=== PATIENT | female | born 1990 | race Caucasian/White ===

== ENCOUNTER → 2018-12-09 12:48 | Observation (INO) ==
[2018-12-09 10:45] LABS: Bilirubin,Urine Negative (Negative); Blood,Urine Small (Negative); Clarity,Urine Clear (Clear); Color,Urine Yellow (Yellow); Glucose,Urine (UA) Normal (Normal); Ketones,Urine Negative (Negative); Leukocyte Esterase,Urine Small (Negative); Nitrite,Urine Negative (Negative); Protein,Urine Negative (Neg-Trace); Specific Gravity,Urine 1.015 (1.010-1.025); Urobilinogen,Urine Normal (Normal)
[2018-12-09 10:56] LABS: Amphetamine Screen,Urine Negative ng/mL (Cutoff=1000); Barbiturate Screen,Urine Negative ng/mL (Cutoff=200); Benzodiazepines Screen,Urine Negative ng/mL (Cutoff=200); Cannabinoid Screen,Urine Positive ng/mL (Cutoff = 50); Cocaine Screen,Urine Negative ng/mL (Cutoff= 300); Opiate Screen,Urine Negative ng/mL (Cutoff=300); Phencyclidine Screen,Urine Negative ng/mL (Cutoff=25)
[2018-12-09 11:05] LABS: RBC,Urine 0-3 per hpf (0-3); Squamous Epithelial Cell,Urine Many per lpf (None-Few)
[2018-12-09 11:06] LABS: Bacteria,Urine Few per hpf (None-Few)
[2018-12-09 12:00] LABS: Trichomonas DNA Not Detected (Not Detect)
[2018-12-09 12:01] LABS: Candida DNA Not Detected (Not Detect); Gardnerella DNA DETECTED (Not Detect)
--- NOTE | 2018-12-09 12:39 | OB/GYN Progress Note ---
Date of Encounter: 12/09/18 Time of Encounter: 12:33 - Assessment and Plan (1) 30 weeks gestation of Current Visit: Yes Status: Acute (2) Encounter for suspected PROM, with rupture of membranes not found Current Visit: Yes Status: Acute Speculum exam shows copious thick white discharge, microscopy shows two small areas suggestive of ferning noted on slide, but not indicative of rupture, not seen on follow up speculum exam by Dr. Garcia, suspect cervical mucous ferns. US by Dr. Garcia shows adequate SINGH. UA indicates infection, will discharge home on Macrobid and Flagyl, and perterm labor and when to return to triage instructions. Pt verbalizes understanding and in agreement with plan. Dr. Garcia involved in POC and discharge planning. (3) Bacterial vaginosis Current Visit: Yes Status: Acute will be given flagyl rx (4) UTI (urinary tract infection) Current Visit: Yes Status: Acute discharged on Macrobid Qualifiers: Urinary tract infection type: acute cystitis Hematuria presence: without hematuria Qualified Code(s): N30.00 - Acute cystitis without hematuria Subjective - Subjective Interval history: presents to triage with complaints of lower back pain and urinary frequency and urgency,vaginal pressure and round ligament pain, denies dysuria. Does not f eel like she is having contractions. Reports good movement, denies vaginal bleeding. Pt states on Sunday and had some leaking noted, none yesterday or today, last intercourse on Sunday. Pt has not checked blood glucose today due to lack of testing strips at home. Antepartum ROS: loss of fluid, movement normal, no vaginal bleeding, no contractions Objective - Exam FHR: auscultation normal FHR comments: baseline 140 Abdomen: Present: soft, gravid Cervical dilation: fingertip/thick/high - Labs Labs: Abnormal lab results Small (Negative) H 12/09/18 10:05 Ur Leukocyte Esterase Small (Negative) H 12/09/18 10:05 5-15 per hpf (0-3) H 12/09/18 10:05 Ur Squamous Epith Cells Many per lpf (None-Few) H 12/09/18 10:05 Ur Culture Indicated? YES (NO) A 12/09/18 10:05 U Marijuana (THC) Screen Positive ng/mL (Cutoff = 50) H 06/10/19 10:05 DETECTED (Not Detect) A 12/09/18 10:18
--- NOTE | 2018-12-09 13:25 | OB/GYN Progress Note ---
Date of Encounter: 12/09/18 Time of Encounter: 13:22 - Assessment and Plan (1) and not yet delivered in third trimester Current Visit: Yes Status: Acute (2) Gestational diabetes Current Visit: Yes Status: Acute She will sampler pickup test strips today and continued monitoring sugars as previously recommended Qualifiers: Gestational diabetes mellitus control: oral hypoglycemic-controlled Trimester: third trimester Qualified Code(s): O24.415 - Gestational diabetes mellitus in , controlled by oral hypoglycemic drugs (3) 30 weeks gestation of Current Visit: Yes Status: Acute (4) Bacterial vaginosis Current Visit: Yes Status: Acute She will be treated with Flagyl 500 mg twice a day for 7 days (5) UTI (urinary tract infection) Current Visit: Yes Status: Acute She will be treated with Macrobid 100 mg twice a day for 7 days Qualifiers: Urinary tract infection type: acute cystitis Hematuria presence: without hematuria Qualified Code(s): N30.00 - Acute cystitis without hematuria Subjective - Subjective Interval history: She is 28-year-old female at 30-4/7 weeks who presents to labor and delivery with complaint of lower back pain cramping and possible leaking of fluid. Patient was initially worked up by the midwives and on speculum exam they found a white discharge but when they did a ferning test with 2 areas that look like burning to them. Did it as needed, and assess the slide I did review with there were these 2 areas that did look like ferning. The patient had complained of a little bit of leaking over the weekend but nothing since. A vaginosis panel was pending at that initial assessment so we had the patient put a pad on and waited for the vaginosis to return. Once we get the results back positive for Bacterial vaginosis I did recommend doing another speculum exam on the patient and a bedside ultrasound for SINGH. Patient is also complaining of back pain when reassessed her she had some pain but appeared to be in the right side more lower back then CVA tenderness suggestive of kidney however when the fisher trammel net assess to her pain was higher. She is complaining of significant amount of frequency and urgency but no dysuria. She is a diabetic gestational A2 on metformin we just had to increase her dose. She states that she ran out of test strips and has not been testing her sugars for the last couple days. She is to going to the strips today and get their sugars monitored cervical make sure that everything staying stable. Antepartum ROS: loss of fluid, contractions Objective - Exam FHR: category 1 FHR comments: Heart tones 140s reactive no contraction seen Auscultation: bilateral: normal Abdomen: Present: soft (Obese), gravid (Bedside ultrasound did reveal vertex presentation SINGH 16.2 cm maximum vertical pocket 8 cm), tenderness (Right flank below within the kidneys) Uterus: Present: firm (Nontender to palpation) Cervical dilation: closed Cervix effacement: thick station: NE Comments: Sterile speculum exam performed on the patient did reveal a whitish discharge we did do another phone on the patient this time I could not identify anything suggestive she was ruptured. - Labs Labs: Abnormal lab results Small (Negative) H 12/09/18 10:05 Ur Leukocyte Esterase Small (Negative) H 12/09/18 10:05 5-15 per hpf (0-3) H 12/09/18 10:05 Ur Squamous Epith Cells Many per lpf (None-Few) H 12/09/18 10:05 Ur Culture Indicated? YES (NO) A 12/09/18 10:05 U Marijuana (THC) Screen Positive ng/mL (Cutoff = 50) H 12/09/18 10:05 DETECTED (Not Detect) A 12/09/18 10:18
== END | disposition home or self-care (01) ==
LOC: 1NENULAB
PROVIDERS: ADMIT Obstetrics & Gynecology; ATTEND Obstetrics & Gynecology

== ENCOUNTER 2019-02-03 08:00 | Inpatient (IN) ==
--- NOTE | 2019-02-03 08:32 | OB/GYN History & Physical ---
Date of Encounter: 02/03/19 Time of Encounter: 08:30 Assessment and Plan (1) 39 weeks gestation of Current visit: Yes Status: Acute (2) Diabetes mellitus affecting in third trimester Current visit: Yes Status: Acute (3) Elective induction of labor planned Current visit: Yes Status: Acute She will be induced with a Arceo catheter and Cytotec plan is to anticipate vaginal delivery (4) and not yet delivered in third trimester Current visit: No Status: Acute History of Present Illness HPI: Ms. Kearney is a 28 year old female 5 para 3013 at 39-0/7 weeks who presented for induction of labor secondary to term . Patient is a type II diabetic be managed by maternal medicine. She is on metformin to control her sugars. She has been getting twice weekly NSTs which have been reassuring. Did inform her once we to 39 weeks she need to be induced. She denies any leaking of fluid no vaginal bleeding no discharge. Patient is wanting a tubal ligation did inform her we might have to wait until 6 weeks if we cannot fitted and prior to discharge. Tubal papers had been signed. Patient is O+, GBS negative, rubella negative, Varicella positive. Past Med Surg Social Fam HX - Past Medical History Source: patient, old records reviewed Medical history: diabetes (type 2) Psychiatric history: no psych history - Past Surgical History Additional surgical history: T&A at age 4 - Social History Smoking Status: Current every day smoker Smokeless Tobacco Status: No Alcohol use: rarely Drug use: marijuana Occupational status: unemployed Current living situation: Home - Independent Activity Level: Independent ambulation Recent Out of Country Travel Within the Last 8 Weeks: No Exposure or Possible Exposure to Illness During Travel: No - Family History Mother Living Status: Still Living - Additional Family History Additional family history: Family history noncontributory Obstetrical History - Pregnancies : 5 Para: 3 Term: 3 : 0 Ab's: 1 Livin Medications and Allergies Levonorgestrel [Mirena] 52 mg IY PER PKG DI 03/19/16 [History] Penicillin VK 500 mg PO QID #40 tablet 03/19/16 [Rx] traMADol [Ultram] 50 mg PO Q6HR PRN #20 tablet 03/19/16 [Rx] Nitrofurantoin Monohyd/M-Cryst [Macrobid 100 mg Capsule] 100 mg PO BID #14 capsule 12/09/18 [Rx] metroNIDAZOLE [Flagyl] 500 mg PO BID #14 tablet 12/09/18 [Rx] Allergy/AdvReac Type Severity Reaction Status Date / Time No Known Allergies Allergy Verified 07/06/17 18:18 Review of System OB All systems PM: reviewed and no additional remarkable complaints except as stated Exam - Constitutional Constitutional: well developed, well nourished, no acute distress, morbidly obese - HEENT HEENT: EOMI, PERRL, Mucus Membranes Moist - Neck Neck exam: full ROM - Lungs Respiratory exam: CTAB - Cardiovascular Cardiovascular exam: RRR - Abdomen Abdomen: Present: bowel sounds normal, gravid ( heart tones 140s reactive occasional contractions seen) - Cervix Dilation: 2 Effacement: 80 Station: -3 (Arceo catheter placed 40 mL balloon inflated and 25 g Cytotec placed vaginally) Results All other labs normal.
[2019-02-03] MEDS ORDERED: *HR* Nalbuphine 10 MG/ML AMPUL IVP PRN (08:36)
[2019-02-03] MEDS ORDERED: Famotidine 20 MG/2 ML VIAL IVP PRN (08:36)
[2019-02-03] MEDS ORDERED: Naloxone 0.4 MG/ML INJ IVP PRN (08:36)
[2019-02-03] MEDS ORDERED: Ondansetron 4 MG/2 ML VIAL IVP PRN (08:36)
[2019-02-03] MEDS ORDERED: Metoclopramide 10 MG/2 ML VIAL IVP PRN (08:36)
[2019-02-03] MEDS ORDERED: Lidocaine 1% 20 ML MDV INFILT PRN (08:36)
[2019-02-03] MEDS ORDERED: miSOPROStol 25 MCG TABLET VG PRN (08:38)
[2019-02-03] MEDS ORDERED: Ringers Solution, Lactated 1,000 ML IVC SCH (08:45)
[2019-02-03 09:10] LABS: Basophils % 0.2 %; Eosinophils # 0.1 K/mcL (0.0-0.6); Eosinophils % 0.9 %; Immature Granulocytes % 0.4 % (0-4); Lymphocytes # 2.9 K/mcL (0.6-4.6); Lymphocytes % 21.6 %; Mean Corpuscular HGB Conc 34.2 g/dL (31.6-35.5); Mean Corpuscular Hemoglobin 27.8 pg (28.0-33.3); Mean Corpuscular Volume 81.4 fL (83.0-100.0); Mean Platelet Volume 10.6 fL (9.4-12.4); Monocytes # 0.7 K/mcL (0.0-1.3); Monocytes % 5.2 %; Neutrophils # 9.6 K/mcL (1.6-8.9); Platelet Count 270 K/mcL (140-400); Red Blood Count 4.67 M/mcL (3.82-4.97); Red Cell Distribution Width 14.4 % (11.5-14.5); Segmented Neutrophils % 71.7 %; White Blood Count 13.4 K/mcL (4.3-11.1)
[2019-02-03 11:15] LABS: Amphetamine Screen,Urine Negative ng/mL (Cutoff=1000); Barbiturate Screen,Urine Negative ng/mL (Cutoff=200); Benzodiazepines Screen,Urine Negative ng/mL (Cutoff=200); Cannabinoid Screen,Urine Negative ng/mL (Cutoff = 50); Cocaine Screen,Urine Negative ng/mL (Cutoff= 300); Opiate Screen,Urine Negative ng/mL (Cutoff=300); Phencyclidine Screen,Urine Negative ng/mL (Cutoff=25)
[2019-02-03 11:26] LABS: Protein/Creatinine Ratio,Urine 0.69 mg/mg (0.00-0.20)
--- NOTE | 2019-02-03 13:56 | OB Labor Progress Note ---
Date of Encounter: 02/03/19 Time of Encounter: 13:54 Labor Progress Note - Subjective Subjective: Patient is feeling contractions stating they are 6-7 out of 10 with contractions. catheter has been out now for some time. - Cervix Cervix: 5/90/-1 AROM large amount of clear fluid poly - Heart Tones Heart Tones: heart tones 140s reactive - Elias-Fela Solis Elias-Fela Solis: Contractions every 2-3 minutes. - Interventions Interventions: We will get patient epidural plan is to anticipate vaginal delivery
[2019-02-03] MEDS ORDERED: Bupivacaine-MPF 0.25% 10 ML VIAL ONE (14:15)
[2019-02-03] MEDS ORDERED: *HR* FentaNYL (PF) 100 MCG/2 ML VIAL ONE (14:15)
[2019-02-03] MEDS ORDERED: Epidural Premix (fent/bupiv) 110 ML EP ONE (14:16)
--- NOTE | 2019-02-03 15:28 | Anesthesia Evaluation PreOp ---
Date of Encounter: 02/03/19 Time of Encounter: 14:09 - Past History Planned Operation: labor epidural Cardiac History: Denies any Significant Hx Pulmonary History: Smoker (currently smokes 3-4 cigs per day, has smoked for 10- 12 yrs.) SENIOR INFORMATICA DEVELOPER History: Denies Any Significant HX Other Medical History: Diabetes Type II (On metformin, FS this am was 95.) Anesthesia History: No Prior Anesthetic Complications, Past Anesthesia (T&A as child, no problems with GA. Has had 3 previous epidurals without complications. No FHAP.) Alcohol Use: none Drug use: none Medications and Allergies Glyburide/Metformin HCl [Glyburid-Metformin 1.25-250 mg] 500 mg PO BID 02/03/19 [History] Vitamin Tablet 1 / PO DAILY 02/03/19 [History] Allergy/AdvReac Type Severity Reaction Status Date / Time No Known Allergies Allergy Verified 07/06/17 18:18 - Meds/Allergy Pre-op Review Medications Reviewed: Yes Allergies Reviewed: Yes Beta Blockers on Current Med List: No Anesthesia Results - Labs 02/03/19 08:40 02/03/19 08:40 Anesthesia Exam Vital Signs/O2 Sat, Most Current Temp Pulse Resp BP 97.1 F L 98 16 154/102 02/03/19 08:39 02/03/19 08:39 02/03/19 08:39 02/03/19 08:39 Height: 5'9" Weight: 244# NPO (# of Hours): >8 Pain Scale: 7 Pain Scale Used: Numeric (1 - 10) - HEENT Pupil (Motor): Pupils equal, EOMI Mallampati: II Teeth: Poor dentition Oral Opening: Greater than 3 - SENIOR INFORMATICA DEVELOPER LOC: Oriented SENIOR INFORMATICA DEVELOPER Motor: Normal RUE, Normal LUE, Normal RLE, Normal LLE, Normal Face SENIOR INFORMATICA DEVELOPER Sensory: Normal: RUE, LUE, RLE, LLE, Face - Cardiac Rhythm: Regular - Pulmonary Breath Sounds: bilateral Clear Respiratory Effort: Symmetrical Anesthesia Assess/Plan ASA Score: 3 (NIDDM, smoker.) Level of consciousness: Cooperative, Oriented, Tranquil Anesthetic Plan: Epidural Monitoring Plan: Standard Monitors
--- NOTE | 2019-02-03 15:33 | Anesthesia Procedures ---
Date of Encounter: 02/03/19 Time of Encounter: 14:24 Procedures: Anesthesia - Epidural/Spinal Patient ID/Chart reviewed: Yes Patient examined: Yes OB Eval: Gestational age: 39 OB Eval: : 5 OB Eval: Hx Para: 3 OB Eval: Dilated at (cm): 5 OB Eval: Contractions: Non-stressed pattern Consent Obtained: Yes Supplemental Oxygen: None/Room Air Site Prep: Aseptic Technique, 0.5% Chlorhexidine/Alcohol Patient position: upright Local Anesthetic: Lidocaine 1% (3) Touhy Needle Gauge: 18 Touhy Needle Depth (cm): 9 Catheter Depth at Skin (cm): 15 Test Dose (1.5% Lido + Epi): Volume given (mls): 3 Test Dose Result: Negative Loading Dose: 0.25% Marcaine (mls): 5 Loading Dose: Fentanyl (mcg): 100 Loading Dose Administered: Thru Catheter Infusion Med: 0.125% Bupivacaine w/ 2 mcg/ml Fentanyl Infusion Rate (mls/hr): [address]: Tegaderm, Tape Interspace Used: L3-L4 Loss of Resistance (LUKASZ): Yes Blood: No CSF: No Paresthesia: No Procedure: Performed Dural Puncture Technique, no meds administered in subarachnoid space. Vitals + FHT's: Vital Signs Time 1424 1442 1445 1450 BP 158/92 156/94 161/99 156/89 Pulse 88 103 71 82 FHTs 150 150 150 150
--- NOTE | 2019-02-03 17:08 | OB Labor Progress Note ---
Date of Encounter: 02/03/19 Time of Encounter: 17:06 Labor Progress Note - Subjective Subjective: Patient comfortable with epidural - Cervix Cervix: 780/-1 - Heart Tones Heart Tones: scalp monitor placed, heart tones 140s, reactive - Madill Madill: IUPC placed contractions every 2 minutes adequate - Interventions Interventions: Continue current care anticipate vaginal delivery
[2019-02-03] MEDS ORDERED: Oxytocin 20 units/ LR 1000 mL 20 UNIT/1,000 ML BAG IVC ONE (17:45)
--- NOTE | 2019-02-03 18:53 | OB/GYN Procedure Note ---
Delivery - Delivery Date: 02/03/19 Provider: Jose Garcia Intrapartum events: none Delivery induction: glass, misoprostol Delivery augmentation: rupture of membranes Delivery monitor: external FHT, external uterine, internal FHT, internal uterine Anesthesia: epidural Quantitated Blood Loss: 100 - (s) A Delivery Date: 02/03/19 Delivery Time: 18:29 Presentation: vertex Position: TANO Route of delivery: Gender: Male Viability: Viable Pounds: 8 Ounces: 15 Weight Gram: 4.06 kg at 1 minute: 8 at 5 mins: 9 Shoulder Dystocia: not encountered Specimens collected: cord blood Placenta: spontaneous Cord: 3 umbilical vessels - Repair Episiotomy: none Laceration Description: None - Complications Delivery complications: none Delivery comments: Patient is a 28-year-old 5 para 3 at 39-0/7 weeks who presented for induction of labor secondary with favorable cervix. Patient is a type II diabetic on metformin it was recommended that she be delivered at 39 weeks due to diabetic status she is brought to labor and delivery where Glass catheter was placed along with vaginal Cytotec. Catheter lab within 2 hours patient was 4-5 cm she was artificially ruptured large amount of clear fluid was encountered at this time she did receive an epidural patient progressed appropriately and became complete patient pushed approximately 5 times delivering a viable male in right occiput anterior presentation at 1829. There was no nuchal cord, no meconium, infant was bulb suctioned on the abdomen. Apgars were 8 at 1 minute, 9 at 5, weight was 8 lbs. 15 oz. Placenta was delivered spontaneously. Three-vessel cord, obstruction that tobias Garcia epidural, estimated blood loss 100 mL. Perineum cervix and vagina was visualized intact. She will be observed 2 hours before being taken floor. - Disposition Mom disposition: stable in LDR Beulah disposition: stable in LDR
[2019-02-03] MEDS ORDERED: Oxytocin 20 units/ LR 1000 mL 20 UNIT/1,000 ML BAG IVC SCH (21:08)
[2019-02-03] MEDS ORDERED: Acetaminophen 325 MG TABLET PO PRN (21:08)
[2019-02-03] MEDS ORDERED: Measles/Mumps/Rubella Vacc 0.5 ML VIAL SQ PRN (21:08)
[2019-02-03] MEDS ORDERED: Epidural Premix (fent/bupiv) 110 ML EP SCH (21:15)
[2019-02-03] MEDS: Ibuprofen 600 MG TABLET PO PRN (22:15)
[2019-02-03] MEDS: *HR* Metformin 500 MG TABLET PO SCH (22:15)
[2019-02-04 06:58] LABS: Basophils # 0.1 K/mcL (0.0-0.2); Basophils % 0.3 %; Eosinophils # 0.1 K/mcL (0.0-0.6); Eosinophils % 0.7 %; Hematocrit 36.9 % (35.3-44.9); Hemoglobin 12.5 g/dL (11.5-15.4); Immature Granulocytes % 0.5 % (0-4); Lymphocytes # 3.7 K/mcL (0.6-4.6); Lymphocytes % 22.3 %; Mean Corpuscular HGB Conc 33.9 g/dL (31.6-35.5); Mean Corpuscular Hemoglobin 27.7 pg (28.0-33.3); Mean Corpuscular Volume 81.8 fL (83.0-100.0); Mean Platelet Volume 11.1 fL (9.4-12.4); Monocytes # 0.9 K/mcL (0.0-1.3); Monocytes % 5.5 %; Neutrophils # 11.9 K/mcL (1.6-8.9); Platelet Count 249 K/mcL (140-400); Red Blood Count 4.51 M/mcL (3.82-4.97); Red Cell Distribution Width 14.3 % (11.5-14.5); Segmented Neutrophils % 70.7 %; White Blood Count 16.8 K/mcL (4.3-11.1)
[2019-02-04 08:30] VITALS: BP 130/94
[2019-02-04] MEDS: Ibuprofen 600 MG TABLET PO PRN ×2 (08:56→16:50)
[2019-02-04] MEDS: *HR* Metformin 500 MG TABLET PO SCH ×2 (08:56→16:50)
[2019-02-04] MEDS ORDERED: Prenatal Vit/FA 1 EACH TABLET PO SCH (09:00)
[2019-02-04 10:25] LABS: Alanine Aminotransferase 8 Units/L (7-52); Aspartate Amino Transferase 17 Units/L (13-39); BUN/Creatinine Ratio 13 (6-26); Blood Urea Nitrogen 7 mg/dL (6-20); Lactate Dehydrogenase 164 Units/L (140-271); Uric Acid 5.7 mg/dL (2.3-7.6); eGFR For African Americans > 60 (> 60); eGFR For Non-African Americans > 60 (> 60)
--- NOTE | 2019-02-04 15:57 | Discharge Summary ---
Date of Encounter: 02/04/19 Time of Encounter: 15:54 - Discharge Diagnosis (1) Vaginal delivery Priority: Primary Status: Acute Comments: Stable, meeting all PP milestones, pain well managed, bleeding minimal desires discharge - Discharge Medications Prescriptions: New Acetaminophen [Tylenol] 650 mg PO Q6H PRN tablet PRN Reason: Mild Pain Ibuprofen [Motrin] 600 mg PO Q6H PRN #60 tablet PRN Reason: Cramping Docusate [Colace] 100 mg PO BID #30 capsule metFORMIN [Glucophage] 500 mg PO BIDWM #60 tablet Continued Vitamin Tablet 1 / PO DAILY Discontinued Glyburide/Metformin HCl [Glyburid-Metformin 1.25-250 mg] 500 mg PO BID Home Medications: Vitamin Tablet 1 / PO DAILY 02/03/19 [History] Acetaminophen [Tylenol] 650 mg PO Q6H PRN tablet 02/04/19 [Rx] Docusate [Colace] 100 mg PO BID #30 capsule 02/04/19 [Rx] Ibuprofen [Motrin] 600 mg PO Q6H PRN #60 tablet 02/04/19 [Rx] metFORMIN [Glucophage] 500 mg PO BIDWM #60 tablet 02/04/19 [Rx] Allergies/Adverse Reactions: Allergy/AdvReac Type Severity Reaction Status Date / Time No Known Allergies Allergy Verified 07/06/17 18:18 Data Procedures and tests throughout hospitalization: Laboratory Tests 02/03/19 02/03/19 02/03/19 08:40 08:40 10:50 WBC 13.4 H RBC 4.67 Hgb 13.0 Hct 38.0 MCV 81.4 L MCH 27.8 L MCHC 34.2 RDW 14.4 Plt Count 270 MPV 10.6 Immature Gran % 0.4 Seg Neutrophils % 71.7 Lymphocytes % 21.6 Monocytes % 5.2 Eosinophils % 0.9 Basophils % 0.2 Neutrophils # 9.6 H Lymphocytes # 2.9 Monocytes # 0.7 Eosinophils # 0.1 Basophils # 0.0 BUN Creatinine Est GFR ( Amer) Est GFR (Non-Af Amer) BUN/Creatinine Ratio Glucose 150 H POC Glucose Uric Acid AST ALT Lactate Dehydrogenase Urine Creatinine 72 Protein/Creatinin Ratio 0.69 H Urine Total Protein 50 H Urine Opiates Screen Ur Buprenorphine Scrn Ur Barbiturates Screen Ur Phencyclidine Scrn Ur Amphetamines Screen U Benzodiazepines Scrn Urine Cocaine Screen U Marijuana (THC) Screen Ur Drug Screen Interp 02/03/19 02/03/19 02/03/19 10:50 14:53 23:26 WBC RBC Hgb Hct MCV MCH MCHC RDW Plt Count MPV Immature Gran % Seg Neutrophils % Lymphocytes % Monocytes % Eosinophils % Basophils % Neutrophils # Lymphocytes # Monocytes # Eosinophils # Basophils # BUN Creatinine Est GFR ( Amer) Est GFR (Non-Af Amer) BUN/Creatinine Ratio Glucose POC Glucose 85 165 H Uric Acid AST ALT Lactate Dehydrogenase Urine Creatinine Protein/Creatinin Ratio Urine Total Protein Urine Opiates Screen Negative Ur Buprenorphine Scrn Negative Ur Barbiturates Screen Negative Ur Phencyclidine Scrn Negative Ur Amphetamines Screen Negative U Benzodiazepines Scrn Negative Urine Cocaine Screen Negative U Marijuana (THC) Screen Negative Ur Drug Screen Interp See Below 02/04/19 02/04/19 02/04/19 06:25 09:50 10:06 WBC 16.8 H RBC 4.51 Hgb 12.5 Hct 36.9 MCV 81.8 L MCH 27.7 L MCHC 33.9 RDW 14.3 Plt Count 249 MPV 11.1 Immature Gran % 0.5 Seg Neutrophils % 70.7 Lymphocytes % 22.3 Monocytes % 5.5 Eosinophils % 0.7 Basophils % 0.3 Neutrophils # 11.9 H Lymphocytes # 3.7 Monocytes # 0.9 Eosinophils # 0.1 Basophils # 0.1 BUN 7 Creatinine 0.54 L Est GFR ( Amer) > 60 Est GFR (Non-Af Amer) > 60 BUN/Creatinine Ratio 13 Glucose POC Glucose 168 H Uric Acid 5.7 AST 17 ALT 8 Lactate Dehydrogenase 164 Urine Creatinine Protein/Creatinin Ratio Urine Total Protein Urine Opiates Screen Ur Buprenorphine Scrn Ur Barbiturates Screen Ur Phencyclidine Scrn Ur Amphetamines Screen U Benzodiazepines Scrn Urine Cocaine Screen U Marijuana (THC) Screen Ur Drug Screen Interp 02/04/19 14:15 WBC RBC Hgb Hct MCV MCH MCHC RDW Plt Count MPV Immature Gran % Seg Neutrophils % Lymphocytes % Monocytes % Eosinophils % Basophils % Neutrophils # Lymphocytes # Monocytes # Eosinophils # Basophils # BUN Creatinine Est GFR ( Amer) Est GFR (Non-Af Amer) BUN/Creatinine Ratio Glucose POC Glucose 144 H Uric Acid AST ALT Lactate Dehydrogenase Urine Creatinine Protein/Creatinin Ratio Urine Total Protein Urine Opiates Screen Ur Buprenorphine Scrn Ur Barbiturates Screen Ur Phencyclidine Scrn Ur Amphetamines Screen U Benzodiazepines Scrn Urine Cocaine Screen U Marijuana (THC) Screen Ur Drug Screen Interp Labs on day of discharge: Labs from last 24 hours 02/04/19 02/04/19 02/04/19 14:15 10:06 09:50 WBC RBC Hgb Hct MCV MCH MCHC RDW Plt Count MPV Immature Gran % Seg Neutrophils % Lymphocytes % Monocytes % Eosinophils % Basophils % Neutrophils # Lymphocytes # Monocytes # Eosinophils # Basophils # BUN 7 Creatinine 0.54 L Est GFR ( Amer) > 60 Est GFR (Non-Af Amer) > 60 BUN/Creatinine Ratio 13 POC Glucose 144 H 168 H Uric Acid 5.7 AST 17 ALT 8 Lactate Dehydrogenase 164 02/04/19 02/03/19 06:25 23:26 WBC 16.8 H RBC 4.51 Hgb 12.5 Hct 36.9 MCV 81.8 L MCH 27.7 L MCHC 33.9 RDW 14.3 Plt Count 249 MPV 11.1 Immature Gran % 0.5 Seg Neutrophils % 70.7 Lymphocytes % 22.3 Monocytes % 5.5 Eosinophils % 0.7 Basophils % 0.3 Neutrophils # 11.9 H Lymphocytes # 3.7 Monocytes # 0.9 Eosinophils # 0.1 Basophils # 0.1 BUN Creatinine Est GFR ( Amer) Est GFR (Non-Af Amer) BUN/Creatinine Ratio POC Glucose 165 H Uric Acid AST ALT Lactate Dehydrogenase Date of admission: 02/03/19 08:15 Primary care physician: Shira Baca CNP Consults: 02/03/19 08:38 Consult to Tutor Coordinator (W&C) [CONS] Routine Reason For Exam: Reason for SW Consult: marijuana use in 02/03/19 21:08 Consult to Cotton Picker Operator [CONS] Routine Comment: Vaginal delivery, consult needed Discharging clinician: Magali Brooks Anticipated date of discharge: 02/04/19 - Patient Status Disposition: Home, Self-Care Condition: Good Functional capacity at discharge: independent ambulation Overall status at discharge: patient is progressing back to baseline - Discharge Instructions Follow Up With: Shira Baca CNP [Primary Care Provider] - Jose Garcia DO [Partnered Physician] - - Diet and Activity Activity: resume usual activities as tolerated Diet: regular diet Hospital Course Reason for admission: induction of labor, IUP at term Delivery: Episiotomy: none Laceration: none Other procedures: none complications: none Discharge diagnosis: IUP at term delivered baby: male Hospital course: [place] - Delivery Date: 02/03/19 Provider: Jose Garcia Intrapartum events: none Delivery induction: glass, misoprostol Delivery augmentation: rupture of membranes Delivery monitor: external FHT, external uterine, internal FHT, internal uterine Anesthesia: epidural Quantitated Blood Loss: 100 - (s) Infant A Delivery Date: 02/03/19 Infant Delivery Time: 18:29 Presentation: vertex Position: TANO Route of delivery: Gender: Male Viability: Viable Pounds: 8 Ounces: 15 Weight Gram: 4.06 kg at 1 minute: 8 at 5 mins: 9 Shoulder Dystocia: not encountered Specimens collected: cord blood Placenta: spontaneous Cord: 3 umbilical vessels - Repair Episiotomy: none Laceration Description: None - Complications Delivery complications: none Delivery comments: Patient is a 28-year-old 5 para 3 at 39-0/7 weeks who presented for induction of labor secondary with favorable cervix. Patient is a type II diabetic on metformin it was recommended that she be delivered at 39 weeks due to diabetic status she is brought to labor and delivery where Glass catheter was placed along with vaginal Cytotec. Catheter lab within 2 hours patient was 4-5 cm she was artificially ruptured large amount of clear fluid was encountered at this time she did receive an epidural patient progressed appropriately and became complete patient pushed approximately 5 times delivering a viable male infant in right occiput anterior presentation at 1829. There was no nuchal cord, no meconium, was bulb suctioned on the abdomen. Apgars were 8 at 1 minute, 9 at 5, weight was 8 lbs. 15 oz. Placenta was delivered spontaneously. Three-vessel cord, obstruction that tobias Garcia epidural, estimated blood loss 100 mL. Perineum cervix and vagina was visualized intact. She will be observed 2 hours before being taken floor. - Disposition Mom disposition: stable in PP and appropriate for discharge Time Attestation: Total time spent providing and/or coordinating discharge services: Time Spent: Less than 30 minutes Exam - Constitutional Vitals: Temp Pulse Resp BP Pulse Ox 97.9 F 83 16 130/94 97 02/04/19 08:29 02/04/19 08:29 02/04/19 08:29 02/04/19 08:29 02/04/19 08:29 General appearance IM: A&O X 3 - Respiratory Respiratory exam: Present: CTAB - Cardiovascular Cardiovascular exam IM: Present: RRR - GI/Abdominal GI/Abdominal exam IM: soft - Uterine Tone: Firm Uterus Position: At Umbilicus - Extremities Exam Extremities exam IM: Present: normal capillary refill, normal inspection - Neurological Exam Neurological exam: normal gait, oriented X3 - Psychiatric Additional comments: reports good mood
== END 2019-02-04 18:53 | disposition home or self-care (01) | DRG 560 ==
LOC: 1NENULAB 08:15 → 1NENUOBS 20:59
PROVIDERS: ADMIT Obstetrics & Gynecology; ATTEND Obstetrics & Gynecology